=== PATIENT | female | born 1965 | race Native Hawaiian/Other Pacific Islander ===

== ENCOUNTER 2018-02-21 08:09 | Outpatient (CLI) | payer BC | END 2018-02-21 22:53 | disposition home or self-care (01) | LOC: MAMMO 08:09 | DX: Z12.31 Encounter for screening mammogram for malignant neoplasm of breast (principal) ==

== ENCOUNTER 2019-09-26 08:14 | Outpatient (CLI) | payer BC | END 2019-09-26 19:37 | disposition home or self-care (01) | LOC: MAMMO 08:14 | DX: Z12.31 Encounter for screening mammogram for malignant neoplasm of breast (principal) ==

== ENCOUNTER 2019-10-08 13:08 | Outpatient (CLI) | payer BC | END 2019-10-08 19:18 | disposition home or self-care (01) | LOC: MAMMO 13:08 | DX: R92.8 Other abnormal and inconclusive findings on diagnostic imaging of breast (principal) ==

== ENCOUNTER 2021-02-10 12:59 | Outpatient (CLI) | payer BC | END 2021-02-10 20:49 | disposition home or self-care (01) | LOC: MAMMO 12:59 | PROVIDERS: ATTEND Specialist | DX: Z12.31 Encounter for screening mammogram for malignant neoplasm of breast (principal) ==

== ENCOUNTER 2021-02-24 10:46 | Outpatient (CLI) | payer BC | END 2021-02-24 20:19 | disposition home or self-care (01) | LOC: MAMMO 10:46 | PROVIDERS: ATTEND Specialist | DX: R92.8 Other abnormal and inconclusive findings on diagnostic imaging of breast (principal) | CPT/HCPCS: G0279 ==

== ENCOUNTER 2022-03-23 08:11 | Outpatient (CLI) | payer BC | END 2022-03-23 19:38 | disposition home or self-care (01) | LOC: MAMMO 08:11 | PROVIDERS: ATTEND Specialist | DX: Z12.31 Encounter for screening mammogram for malignant neoplasm of breast (principal) ==

== ENCOUNTER 2023-03-25 08:52 | Outpatient (CLI) | payer BC | END 2023-03-25 19:13 | disposition home or self-care (01) | LOC: MAMMO 08:52 | PROVIDERS: ATTEND Specialist | DX: Z12.31 Encounter for screening mammogram for malignant neoplasm of breast (principal) ==